=== PATIENT | male | born 1965 | race Two or more races ===

== ENCOUNTER 2018-10-11 15:25 | Inpatient (IN) | payer MEDICAID ==
[~2018-10-11] VITALS: Ht 157.5 cm; Wt 66.3 kg
--- NOTE | 2018-10-11 15:46 | NUR ---
ED Nurse Note: PT FROM HOME CAME IN DUE TO ALCOHOL WITHDRAWAL SYMPTOMS, INSOMNIA. LAST DRINK WAS 12 HOURS AGO. PT STATES HEARING VOICES AND MURMUR BUT UNCLEAR OF WHAT THE VOICES ARE TELLING. PT HAS SI AND THINKS OF OF JUMPING OFF THE PT IS AAO X4 AND AMBULATORY. NO RESPIRATORY DISTRESS. NOTED BILATERAL HAND TREMORS AND PT BEING RESTLESS.
--- NOTE | 2018-10-11 15:53 | NUR ---
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
--- NOTE | 2018-10-11 15:54 | NUR ---
Tamar jain in EDM - 10/11/18 at 1744 by JORGE ED Nurse Note: PRIMARY RN SITTER.
--- NOTE | 2018-10-11 15:57 | Emergency Room Report ---
History of Present Illness General Chief Complaint: Behavioral Complaint Source: Patient, Family Member Present Illness HPI Patient presents with tremulousness and weakness. He claims that he has been drinking for 12 hours. He denies any seizures, blacking out vomiting blood, coffee grounds melena hematochezia, dysuria, chest pain. The patient does complain of right upper quadrant pain it's constant and 8/10 radiating somewhat to his back. He has been vomiting. He has trouble controlling his hands and legs due to the tremor. He is ambulatory but very weak. The last time the patient was sober was 2 years ago for 2 weeks. He does not go to Alcoholics Anonymous. The patient denies other medical problems at this time. He's not suicidal or homicidal although apparently nephew was concerned that patient needed to have a knife removed from near him as he might of had thoughts of self-harm. Allergies: Coded Allergies: No Known Allergies (Unverified , 10/11/18) Patient History Past Medical History: see triage record Social History: Reports: alcohol use; Denies: drug use Social History Narrative with nephew Reviewed Nursing Documentation: PMH: Agreed; PSxH: Agreed Nursing Documentation-PMH Past Medical History: No History, Except For Review of Systems All Other Systems: negative except mentioned in HPI Physical Exam Vital Signs Date Time Temp Pulse Resp B/P (MAP) Pulse Ox O2 Delivery O2 Flow Rate FiO2 10/11/18 15:36 98.6 96 18 184/101 (128) 98 Room Air Sp02 EP Interpretation: reviewed, normal General Appearance: alert, GCS 15, mild distress, thin, Chronically Ill Head: normocephalic, atraumatic Eyes: bilateral eye PERRL, bilateral eye Scleral Injection ENT: moist mucus membranes Neck: supple Respiratory: lungs clear, normal breath sounds Cardiovascular #1: regular rate, rhythm Cardiovascular #2: 2+ radial (R) Gastrointestinal: normal inspection, normal bowel sounds, non tender, no mass, non-distended Musculoskeletal: back normal, normal range of motion, other - Unsteady on feet Neurologic: alert, oriented x3, sensory intact, other - tremulous Psychiatric: anxious Skin: normal inspection, warm/dry Medical Decision Making Diagnostic Impression: Primary Impression: Alcohol withdrawal Qualified Codes: F10.232 - Alcohol dependence with withdrawal with perceptual disturbance Additional Impressions: Vomiting Qualified Codes: R11.2 - Nausea with vomiting, unspecified Substance abuse Rhabdomyolysis Qualified Codes: M62.82 - Rhabdomyolysis ER Course Patient is tremulous with alcohol on his breath with weakness. Differential includes alcohol withdrawal, impending DTs, electrolyte imbalance, acute myocardial infarction amongst others. The patient will be evaluated with EKG, chest x-ray and labs. The patient will be treated with IV hydration, thiamine and Ativan. Based on his current exam more severe course of alcohol withdrawal and possible DTs is most likely to develop. EKG with ST. CXR no infiltrate. Elevated bili. + BAL = 14 with this level of withdrawal. Also + amphetamine Elevated CK. Still with nausea and tremor. Risk for seizure and DTs. Admit tele observation. Contact Dr. Borges. Contact Laboratory Tests Test 10/11/18 15:55 White Blood Count 8.8 K/UL (4.8-10.8) Red Blood Count 4.97 M/UL (4.70-6.10) Hemoglobin 15.9 G/DL (14.2-18.0) Hematocrit 44.1 % (42.0-52.0) Mean Corpuscular Volume 89 FL (80-99) Mean Corpuscular Hemoglobin 31.9 PG (27.0-31.0) H Mean Corpuscular Hemoglobin Concent 36.0 G/DL (32.0-36.0) Red Cell Distribution Width 11.0 % (11.6-14.8) L Platelet Count 136 K/UL (150-450) L Mean Platelet Volume 5.5 FL (6.5-10.1) L Neutrophils (%) (Auto) % (45.0-75.0) Lymphocytes (%) (Auto) % (20.0-45.0) Monocytes (%) (Auto) % (1.0-10.0) Eosinophils (%) (Auto) % (0.0-3.0) Basophils (%) (Auto) % (0.0-2.0) Neutrophils % (Manual) Pending Lymphocytes % (Manual) Pending Platelet Estimate Pending Platelet Morphology Pending Prothrombin Time 10.1 SEC (9.30-11.50) Prothrombin Time INR 1.0 (0.9-1.1) PTT 27 SEC (23-33) Urine Color Yellow Urine Appearance Clear Urine pH 6 (4.5-8.0) Urine Specific [place] 1.020 (1.005-1.035) Urine Protein 2+ (NEGATIVE) H Urine Glucose (UA) Negative (NEGATIVE) Urine Ketones 4+ (NEGATIVE) H Urine Blood 3+ (NEGATIVE) H Urine Nitrite Negative (NEGATIVE) Urine Bilirubin Negative (NEGATIVE) Urine Urobilinogen 4 MG/DL (0.0-1.0) H Urine Leukocyte Esterase 1+ (NEGATIVE) H Urine RBC 5-10 /HPF (0 - 0) H Urine WBC 2-4 /HPF (0 - 0) Urine Squamous Epithelial Cells Few /LPF (NONE/OCC) Urine Bacteria Few /HPF (NONE) Sodium Level 140 MMOL/L (136-145) Potassium Level 3.3 MMOL/L (3.5-5.1) L Chloride Level 99 MMOL/L (98-107) Carbon Dioxide Level 29 MMOL/L (21-32) Anion Gap 12 mmol/L (5-15) Blood Urea Nitrogen 16 mg/dL (7-18) Creatinine 0.8 MG/DL (0.55-1.30) Estimate Glomerular Filtration Rate > 60 mL/min (>60) Glucose Level 155 MG/DL (74-106) H Calcium Level 9.4 MG/DL (8.5-10.1) Phosphorus Level 3.9 MG/DL (2.5-4.9) Magnesium Level 2.0 MG/DL (1.8-2.4) Total Bilirubin 2.9 MG/DL (0.2-1.0) H Direct Bilirubin 0.6 MG/DL (0.0-0.3) H Aspartate Amino Transferase (AST) 89 U/L (15-37) H Alanine Aminotransferase (ALT) 54 U/L (12-78) Alkaline Phosphatase 112 U/L (46-116) Total Creatine Kinase 1443 U/L (26-308) H Troponin I 0.000 ng/mL (0.000-0.056) Total Protein 8.3 G/DL (6.4-8.2) H Albumin 4.3 G/DL (3.4-5.0) Globulin 4.0 g/dL Albumin/Globulin Ratio 1.1 (1.0-2.7) Lipase 119 U/L (73-393) Salicylates Level < 0.2 ug/mL (2.8-20) L Urine Opiates Screen Negative (NEGATIVE) Acetaminophen Level < 2 MCG/ML (10-30) L Urine Barbiturates Screen Negative (NEGATIVE) Phencyclidine (PCP) Screen Negative (NEGATIVE) Urine Amphetamines Screen Positive (NEGATIVE) H Urine Benzodiazepines Screen Negative (NEGATIVE) Urine Cocaine Screen Negative (NEGATIVE) Urine Marijuana (THC) Screen Negative (NEGATIVE) Serum Alcohol 14 mg/dL EKG Diagnostic Results Rate: normal Rhythm: NSR ST Segments: no acute changes Rhythm Strip Diag. Results EP Interpretation: yes Rhythm: no PVC's, no ectopy, other - ST Chest X-Ray Diagnostic Results Chest X-Ray Diagnostic Results : Chest X-Ray Ordered: Yes # of Views/Limited/Complete: 1 View Indication: Other EP Interpretation: Yes Interpretation: no consolidation, no effusion, no pneumothorax Impression: No acute disease Electronically Signed by: Electronically signed by Nestor Tillman MD Last Vital Signs Date Time Temp Pulse Resp B/P (MAP) Pulse Ox O2 Delivery O2 Flow Rate FiO2 10/13/18 00:00 98.8 20 145/95 (112) 97 10/12/18 21:00 Room Air 10/12/18 20:00 78 Status: improved Disposition: PLACE IN OBSERVATION Condition: Serious Nestor Tillman MD Oct 11, 2018 15:57
[2018-10-11 16:00] VITALS: BP 161/91
[2018-10-11] MEDS ORDERED: LORazepam Inj 2mg/ml 1ml IV ONE (16:00)
[2018-10-11] MEDS ORDERED: Thiamine HCl 100 MG in D5W 55 ML IV ONE (16:00)
[2018-10-11 16:30] LABS: HEMATOCRIT 44.1 % (42.0-52.0); HEMOGLOBIN 15.9 G/DL (14.2-18.0); MEAN CORPUSCULAR VOLUME 89 FL (80-99); PLATELET COUNT 136 K/UL (150-450); RED BLOOD COUNT 4.97 M/UL (4.70-6.10); WHITE BLOOD COUNT 8.8 K/UL (4.8-10.8)
--- NOTE | 2018-10-11 16:30 | NUR ---
ED Nurse Note: PT DENIES SI AT THIS TIME AND DENIES HEARING VOICES. NEPHEW AT THE BED SIDE. VSS.
[2018-10-11 16:32] LABS: APPEARANCE,URINE CLEAR; BILIRUBIN, URINE NEGATIVE (NEGATIVE); GLUCOSE, URINE (UA) NEGATIVE (NEGATIVE); KETONES,URINE 4+ (NEGATIVE); LEUKOCYTE ESTERASE ,URINE 1+ (NEGATIVE); NITRITE,URINE NEGATIVE (NEGATIVE); PH,URINE 6 (4.5-8.0); PROTEIN,URINE 2+ (NEGATIVE); UROBILINOGEN,URINE 4 MG/DL (0.0-1.0)
[2018-10-11 16:34] LABS: COLOR,URINE YELLOW
[2018-10-11 16:40] LABS: ANION GAP 12 mmol/L (5-15); BLOOD UREA NITROGEN 16 mg/dL (7-18); CALCIUM 9.4 MG/DL (8.5-10.1); CARBON DIOXIDE 29 MMOL/L (21-32); CHLORIDE 99 MMOL/L (98-107); CREATININE 0.8 MG/DL (0.55-1.30); POTASSIUM 3.3 MMOL/L (3.5-5.1); SODIUM 140 MMOL/L (136-145)
[2018-10-11 16:43] LABS: PHOSPHORUS 3.9 MG/DL (2.5-4.9)
[2018-10-11 16:52] LABS: ALANINE AMINOTRANSFERASE 54 U/L (12-78); ALBUMIN 4.3 G/DL (3.4-5.0); ALBUMIN/GLOBULIN RATIO 1.1 (1.0-2.7); ALKALINE PHOSPHATASE 112 U/L (46-116); ASPARTATE AMINO TRANSFERASE 89 U/L (15-37); BILIRUBIN,TOTAL 2.9 MG/DL (0.2-1.0); CREATINE KINASE 1443 U/L (26-308)
[2018-10-11 16:54] LABS: BILIRUBIN,DIRECT 0.6 MG/DL (0.0-0.3)
[2018-10-11] MEDS ORDERED: cefTRIAXone 1 GM in NS 55 ML IVPB ONE (17:00)
--- NOTE | 2018-10-11 17:40 | NUR ---
Note susy in EDM - 10/11/18 at 1744 by JORGE ED Nurse Note: PT IS CALMER AND MORE RELAXED AT THIS TIME. VSS. FAMILY MEMBER AT THE BED SIDE. PRIMARY RN SITTER.
--- NOTE | 2018-10-11 17:40 | NUR ---
ED Nurse Note: PT IS CALMER AND MORE RELAXED AT THIS TIME. VSS. FAMILY MEMBER AT THE BED SIDE.
[2018-10-11] MEDS ORDERED: LORazepam Inj 2mg/ml 1ml IV PRN (18:00)
[2018-10-11] MEDS ORDERED: Folic Acid 1 MG, Magnesium Sulfate 2,000 MG, Multivitamin - 12 Injection 10 ML, Thiamin... IV ONE ×5 (18:00)
[2018-10-11 18:04] VITALS: BP 154/89
--- NOTE | 2018-10-11 18:21 | NUR ---
ED Nurse Note: TRIED TO CALL FOR REPROT. ESTELLE RECEIVING RN NOT AVAILABLE TO TAKE REPORT AT THIS TIME.
--- NOTE | 2018-10-11 18:34 | NUR ---
ED Nurse Note: REPORT GIVEN TO SYDNEY PAYTON RN OF [facility].
--- NOTE | 2018-10-11 18:45 | NUR ---
ED Nurse Note: PT TRANSFERRED TO [facility] WITH ALL BELONGINGS SENT.
[2018-10-11 18:50] VITALS: BP 147/81
--- NOTE | 2018-10-11 18:50 | NUR ---
NURSE NOTES: Pt received from RORY Orellana alert and oriented x4 with no acute s/s of distress noted. Primarily [place]-speaking. IV site asymptomatic and patent on R ac 20g saline lock. No wounds noted upon admission. Belongings signed with transferring RN - all belongings with patient upon transfer. Pt accompanied by nephew at bedside. Per pt, he normally ambulates at home. Last BM 10/11, no hx of flu vax and pt refused to be vaccinated upon discharge. Per pt, he has been depressed and is having suicidal ideation - wants to jump off the building. 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
--- NOTE | 2018-10-11 19:35 | NUR ---
HAND-OFF: Report given to RORY Berrios. No acute s/s of distress noted.
--- NOTE | 2018-10-11 19:40 | NUR ---
NURSE NOTES: Received report from Sherly Acosta RN. Patient in bed with no complaints of acute pain or discomfort at this time. Kept clean, dry, and comfortable in bed. Able to express needs and wants appropriately with some Yoruba noted. IV line intact and patent with prescribed fluids running as ordered. Placed on continuous cardiac monitoring per protocol. Safety and seizure precaution in place; siderails X2 up and padded, call light within reach, bed in lowest position, brakes and alarm on at all times, and suction equipment at bedside. No S/S of suicidal ideation at this time and is closely monitored. Needs and wants anticipated and attended. Will continue plan of care and monitor for any changes noted.
[2018-10-11 20:00] VITALS: BP 140/84
[2018-10-11] MEDS ORDERED: Folic Acid 1 MG, Magnesium Sulfate 2,000 MG, Multivitamin - 12 Injection 10 ML in Sodiu... IV ONE (20:00)
[2018-10-11] MEDS: Heparin 5000 units/ml inj SUBQ SCH (20:53)
--- NOTE | 2018-10-11 23:53 | Consultation ---
History of Present Illness General Date patient seen: Oct 11, 2018 Chief Complaint: Alcohol W/D and Confusion Referring physician: Dr. Chowdary Present Illness HPI Salvatore Guzman is a 53 year old man with alcoholism, depression (reported suicide attempt six months ago, attempted to jump off a building) who presented to the ED with tremulousness and weakness, nausea and vomiting along with depression and anxiety, He denies any active suicidal ideations. Last drink of alcohol was Friday. Upon interview he is awake, but lethargic and oriented. He is generally weak throughout but without focal deficits Allergies: Coded Allergies: No Known Allergies (Unverified , 10/11/18) Medication History Scheduled Fluoxetine Hcl* (Fluoxetine Hcl*), 20 MG ORAL DAILY Patient History History Provided By: Patient, Medical Record Healthcare decision maker Resuscitation status Full Code Advanced Directive on File Past Medical/Surgical History Past Medical/Surgical History: (1) Alcohol abuse Review of Systems Constitutional: Reports: chills, malaise, weakness; Denies: no symptoms, see HPI, sweats, fever, other Eye: Denies: no symptoms, see HPI, eye pain, blurred vision, tearing, double vision, nose pain, nose congestion, acuity changes, discharge, other ENT: Denies: no symptoms, see HPI, ear pain, ear discharge, nose pain, nose congestion, throat pain, throat swelling, mouth pain, hearing loss, nasal discharge, other Respiratory: Denies: no symptoms, see HPI, cough, orthopnea, shortness of breath, stridor, wheezing, STOLL, sputum, other Cardiovascular: Denies: no symptoms, see HPI, chest pain, edema, palpitations, syncope, PND, other Gastrointestinal: Denies: no symptoms, see HPI, abdominal pain, constipation, diarrhea, nausea, vomiting, melena, hematemesis, other Genitourinary: Denies: no symptoms, see HPI, discharge, dysuria, frequency, hematuria, pain, retention, incontinence, urgency, vag bleed/dc, other Musculoskeletal: Denies: no symptoms, see HPI, back pain, gout, joint pain, joint swelling, muscle pain, muscle stiffness, other Skin: Denies: no symptoms, see HPI, rash, change in color, change in hair/nails , dryness, lesions, other Psychiatric: Denies: no symptoms, see HPI, prior hx, anxiety, depressed feelings, emotional problems, SI, HI, hallucinations, other Neurological: Reports: tremors; Denies: no symptoms, see HPI, headache, numbness, paresthesia, seizure, tingling, focal weakness, syncope, dizziness, other Endocrine: Denies: no symptoms, see HPI, excessive sweating, flushing, intolerance to temperature, increased thirst, increased urine, unexplained weight loss, other Hematologic/Lymphatic: Denies: no symptoms, see HPI, anemia, blood clots, easy bleeding, easy bruising, swollen glands, diathesis, other Physical Exam General Appearance: WD/WN, no apparent distress, lethargic, alert oriented x3 Lines, tubes and drains: peripheral HEENT: normocephalic, atraumatic, anicteric, mucous membranes moist, PERRL Neck: non-tender, normal alignment, supple, normal inspection Respiratory/Chest: normal breath sounds, no respiratory distress, no accessory muscle use Extremities: non-tender, non-pitting, no edema, no cyanosis Skin Exam: normal pigmentation, warm/dry, no diaphoresis 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, alert, oriented x 3, responsive, motor weakness, other Musculoskeletal: no effusion - 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0) Mean Corpuscular Volume 89 FL (80-99) Mean Corpuscular Hemoglobin 31.9 PG (27.0-31.0) H Mean Corpuscular Hemoglobin Concent 36.0 G/DL (32.0-36.0) Red Cell Distribution Width 11.0 % (11.6-14.8) L Platelet Count 136 K/UL (150-450) L Mean Platelet Volume 5.5 FL (6.5-10.1) L Neutrophils (%) (Auto) % (45.0-75.0) Lymphocytes (%) (Auto) % (20.0-45.0) Monocytes (%) (Auto) % (1.0-10.0) Eosinophils (%) (Auto) % (0.0-3.0) Basophils (%) (Auto) % (0.0-2.0) Differential Total Cells Counted 100 Neutrophils % (Manual) 85 % (45-75) H Lymphocytes % (Manual) 9 % (20-45) L Monocytes % (Manual) 5 % (1-10) Eosinophils % (Manual) 0 % (0-3) Basophils % (Manual) 1 % (0-2) Band Neutrophils 0 % (0-8) Platelet Estimate Decreased L Platelet Morphology Normal Red Blood Cell Morphology Normal Prothrombin Time 10.1 SEC (9.30-11.50) Prothromb Time International Ratio 1.0 (0.9-1.1) Activated Partial Thromboplast Time 27 SEC (23-33) Urine Color Yellow Urine Appearance Clear Urine pH 6 (4.5-8.0) Urine Specific [place] 1.020 (1.005-1.035) Urine Protein 2+ (NEGATIVE) H Urine Glucose (UA) Negative (NEGATIVE) Urine Ketones 4+ (NEGATIVE) H Urine Blood 3+ (NEGATIVE) H Urine Nitrite Negative (NEGATIVE) Urine Bilirubin Negative (NEGATIVE) Urine Urobilinogen 4 MG/DL (0.0-1.0) H Urine Leukocyte Esterase 1+ (NEGATIVE) H Urine RBC 5-10 /HPF (0 - 0) H Urine WBC 2-4 /HPF (0 - 0) Urine Squamous Epithelial Cells Few /LPF (NONE/OCC) Urine Bacteria Few /HPF (NONE) Sodium Level 140 MMOL/L (136-145) Potassium Level 3.3 MMOL/L (3.5-5.1) L Chloride Level 99 MMOL/L (98-107) Carbon Dioxide Level 29 MMOL/L (21-32) Anion Gap 12 mmol/L (5-15) Blood Urea Nitrogen 16 mg/dL (7-18) Creatinine 0.8 MG/DL (0.55-1.30) Estimat Glomerular Filtration Rate > 60 mL/min (>60) Glucose Level 155 MG/DL (74-106) H Calcium Level 9.4 MG/DL (8.5-10.1) Phosphorus Level 3.9 MG/DL (2.5-4.9) Magnesium Level 2.0 MG/DL (1.8-2.4) Total Bilirubin 2.9 MG/DL (0.2-1.0) H Direct Bilirubin 0.6 MG/DL (0.0-0.3) H Aspartate Amino Transf (AST/SGOT) 89 U/L (15-37) H Alanine Aminotransferase (ALT/SGPT) 54 U/L (12-78) Alkaline Phosphatase 112 U/L (46-116) Total Creatine Kinase 1443 U/L (26-308) H Troponin I 0.000 ng/mL (0.000-0.056) Total Protein 8.3 G/DL (6.4-8.2) H Albumin 4.3 G/DL (3.4-5.0) Globulin 4.0 g/dL Albumin/Globulin Ratio 1.1 (1.0-2.7) Lipase 119 U/L (73-393) Salicylates Level < 0.2 ug/mL (2.8-20) L Urine Opiates Screen Negative (NEGATIVE) Acetaminophen Level < 2 MCG/ML (10-30) L Urine Barbiturates Screen Negative (NEGATIVE) Phencyclidine (PCP) Screen Negative (NEGATIVE) Urine Amphetamines Screen Positive (NEGATIVE) H Urine Benzodiazepines Screen Negative (NEGATIVE) Urine Cocaine Screen Negative (NEGATIVE) Urine Marijuana (THC) Screen Negative (NEGATIVE) Serum Alcohol 14 mg/dL Height (Feet): 5 Height (Inches): 2.00 Weight (Pounds): 165 Medications Current Medications Medications (Trade) Dose Ordered Sig/Jerome Route PRN Reason Start Time Stop Time Status Last Admin Dose Admin Acetaminophen (Tylenol) 650 mg Q4H PRN ORAL Mild Pain (Pain Scale 1-3) 10/11/18 18:00 11/10/18 17:59 Dextrose (Dextrose 50%) 25 ml Q30M PRN IV Hypoglycemia 10/11/18 18:00 11/10/18 17:59 Dextrose (Dextrose 50%) 50 ml Q30M PRN IV Hypoglycemia 10/11/18 18:00 11/10/18 17:59 Diphenhydramine HCl (Benadryl) 25 mg Q6H PRN ORAL Itching/Pruritis 10/11/18 18:00 11/10/18 17:59 Folic Acid (Folate) 1 mg DAILY ORAL 10/12/18 09:00 11/11/18 08:59 Folic Acid 1 mg/ Magnesium Sulfate 2000 mg/ Multivitamins 10 ml/Sodium Chloride 1,014.2 ml @ 125 mls/ hr Q8H7M ONCE IV 10/11/18 20:00 10/12/18 04:06 10/11/18 20:51 Heparin Sodium (Porcine) (Heparin 5000 units/ml) 5,000 units EVERY 12 HOURS SUBQ 10/11/18 21:00 11/10/18 20:59 10/11/18 20:53 Lorazepam (Ativan 2mg/ml 1ml) 1 mg Q4H PRN IV anxiety 10/11/18 18:00 10/18/18 17:59 Ondansetron HCl (Zofran) 4 mg Q6H PRN IVP Nausea & Vomiting 10/11/18 18:00 11/10/18 17:59 Pantoprazole (Protonix) 40 mg ACBREAKFAST ORAL 10/12/18 06:30 11/11/18 06:29 Thiamine HCl (Vitamin B1) 100 mg DAILY ORAL 10/12/18 09:00 11/11/18 08:59 Assessment/Plan Problem List: (1) DTs (delirium tremens) ICD Codes: F10.231 - Alcohol dependence with withdrawal delirium SNOMED: 2642926 (2) Acute encephalopathy ICD Codes: G93.40 - Encephalopathy, unspecified SNOMED: 93804881, 240583773 (3) Impending delirium tremens ICD Codes: F10.239 - Alcohol dependence with withdrawal, unspecified SNOMED: 297246043 (4) Alcohol abuse ICD Codes: F10.10 - Alcohol abuse, uncomplicated SNOMED: 95516025 Status: stable, progressing, tolerating diet Assessment/Plan: COntinue neuro obs Pain management as per ID Surgical plan as per ortho Maintain normothermia Maintain normoglycemia with ISS PT eval Case Management for D/C planning Yaneth Bolton N.P. Oct 11, 2018 23:53
[2018-10-12] VITALS: BP 134/80
--- NOTE | 2018-10-12 02:27 | NUR ---
NURSE NOTES: Patient in bed asleep with no S/S of distress noted. Will continue to monitor
[2018-10-12 04:00] VITALS: BP 136/79
[2018-10-12 07:19] LABS: BASOPHILS % (AUTO) 0.9 % (0.0-2.0); HEMATOCRIT 42.6 % (42.0-52.0); LYMPHOCYTES % (AUTO) 20.3 % (20.0-45.0); MEAN CORPUSCULAR VOLUME 91 FL (80-99); MONOCYTES % (AUTO) 9.4 % (1.0-10.0); NEUTROPHILS % (AUTO) 68.4 % (45.0-75.0); PLATELET COUNT 117 K/UL (150-450); RED BLOOD COUNT 4.67 M/UL (4.70-6.10); WHITE BLOOD COUNT 5.6 K/UL (4.8-10.8)
--- NOTE | 2018-10-12 07:34 | NUR ---
HAND-OFF: Report given to Sherly Acosta RN. Patient in bed with no S/S of distress noted. Endorsed plan of care.
--- NOTE | 2018-10-12 07:35 | NUR ---
NURSE NOTES: Pt received from Yash RN alert and oriented x4 with no acute s/s of distress noted. IV site asymptomatic and patent on R ac 20g, saline lock. Bed alarm on, Bed in lowest position. Call light and belongings within reach.
[2018-10-12 07:54] LABS: ALANINE AMINOTRANSFERASE 44 U/L (12-78); ALBUMIN 3.5 G/DL (3.4-5.0); ALKALINE PHOSPHATASE 98 U/L (46-116); ANION GAP 10 mmol/L (5-15); ASPARTATE AMINO TRANSFERASE 58 U/L (15-37); BLOOD UREA NITROGEN 10 mg/dL (7-18); CALCIUM 8.6 MG/DL (8.5-10.1); CARBON DIOXIDE 28 MMOL/L (21-32); CHLORIDE 99 MMOL/L (98-107); CREATINE KINASE 702 U/L (26-308); CREATININE 0.6 MG/DL (0.55-1.30); SODIUM 137 MMOL/L (136-145)
[2018-10-12 07:55] LABS: BILIRUBIN,DIRECT 0.4 MG/DL (0.0-0.3)
[2018-10-12 08:00] VITALS: BP 137/82
[2018-10-12] MEDS: Heparin 5000 units/ml inj SUBQ SCH ×2 (09:00→21:00)
[2018-10-12] MEDS: Thiamine 100mg tab ORAL SCH (09:33)
--- NOTE | 2018-10-12 10:07 | NUR ---
NURSE NOTES: RN informed Dr. Paredes regarding Potassium of 3.0 today. Obtained order for 40 meQ Kcl x1 now. Will carry out order.
--- NOTE | 2018-10-12 10:24 | Diagnostic Imaging Report ---
Indication: Chest pain Comparison: None A single view chest radiograph was obtained. Findings: Cardiomediastinal appearance is within normal limits for age. The lungs are clear. Pulmonary vascularity is appropriate. The diaphragmatic contour is smooth and costophrenic angles are sharp. No pleural effusions are identified. The bones are unremarkable. Impression: No acute findings
--- NOTE | 2018-10-12 10:58 | History and Physical ---
History of Present Illness General Date patient seen: Oct 12, 2018 Time patient seen: 07:15 Reason for Hospitalization: Behavioral Complaint Present Illness HPI 53 year old man with alcoholism, depression (reported suicide attempt six months ago, attempted to jump off a building) who presented to the ED with tremulousness and weakness, nausea and vomiting along with depression and anxiety, Denies any active suicidal ideations. Last drink of alcohol was Friday. SHx: Denies tobacco use FHx: No premature CAD Allergies: Coded Allergies: No Known Allergies (Unverified , 10/11/18) Patient History Healthcare decision maker Resuscitation status Full Code Advanced Directive on File Review of Systems Constitutional: Denies: chills, fever Eye: Denies: eye pain ENT: Denies: ear pain Respiratory: Denies: cough Cardiovascular: Denies: chest pain Gastrointestinal: Reports: nausea, vomiting; Denies: abdominal pain Genitourinary: Denies: dysuria Musculoskeletal: Denies: back pain Neurological: Denies: headache Physical Exam General Appearance: no apparent distress, alert HEENT: atraumatic, anicteric Neck: supple Respiratory/Chest: lungs clear, normal breath sounds, no respiratory distress, no accessory muscle use Cardiovascular/Chest: normal rate, regular rhythm Abdomen: non tender, soft Extremities: non-tender, normal inspection Neurologic: 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 sourcing specialist II-XII grossly normal, no motor/sensory deficits, alert, oriented x 3, other - Mild resting tremor Last 24 Hour Vital Signs Date Time Temp Pulse Resp B/P (MAP) Pulse Ox O2 Delivery O2 Flow Rate FiO2 10/12/18 09:00 Room Air 10/12/18 08:00 97.8 81 20 137/82 (100) 99 10/12/18 04:00 71 10/12/18 04:00 99.0 89 17 136/79 (98) 95 10/12/18 00:00 99.2 94 16 134/80 (98) 95 10/12/18 00:00 74 10/11/18 21:00 Room Air 10/11/18 20:00 99.7 97 17 140/84 (102) 95 10/11/18 20:00 96 10/11/18 19:14 Room Air 10/11/18 18:50 97.5 93 18 147/81 (103) 97 10/11/18 18:45 97.9 88 17 158/90 97 Room Air 10/11/18 18:04 98.0 82 15 154/89 100 Room Air 10/11/18 16:00 98.2 83 20 161/91 99 Room Air 10/11/18 15:46 96 18 Room Air 10/11/18 15:36 98.6 96 18 184/101 (128) 98 Room Air Intake and Output 10/11/18 10/12/18 18:59 06:59 Intake Total 1056 ml 150 ml Output Total 200 ml Balance 1056 ml -50 ml Intake Oral 150 ml IV Total 1056 ml Output Urine Total 200 ml # Voids 1 4 # Bowel Movements 1 Laboratory Tests Test 10/11/18 15:55 10/12/18 05:54 White Blood Count 8.8 K/UL (4.8-10.8) 5.6 K/UL (4.8-10.8) Red Blood Count 4.97 M/UL (4.70-6.10) 4.67 M/UL (4.70-6.10) L Hemoglobin 15.9 G/DL (14.2-18.0) 15.0 G/DL (14.2-18.0) Hematocrit 44.1 % (42.0-52.0) 42.6 % (42.0-52.0) Mean Corpuscular Volume 89 FL (80-99) 91 FL (80-99) Mean Corpuscular Hemoglobin 31.9 PG (27.0-31.0) H 32.2 PG (27.0-31.0) H Mean Corpuscular Hemoglobin Concent 36.0 G/DL (32.0-36.0) 35.4 G/DL (32.0-36.0) Red Cell Distribution Width 11.0 % (11.6-14.8) L 11.0 % (11.6-14.8) L Platelet Count 136 K/UL (150-450) L 117 K/UL (150-450) L Mean Platelet Volume 5.5 FL (6.5-10.1) L 5.1 FL (6.5-10.1) L Neutrophils (%) (Auto) % (45.0-75.0) 68.4 % (45.0-75.0) Lymphocytes (%) (Auto) % (20.0-45.0) 20.3 % (20.0-45.0) Monocytes (%) (Auto) % (1.0-10.0) 9.4 % (1.0-10.0) Eosinophils (%) (Auto) % (0.0-3.0) 1.0 % (0.0-3.0) Basophils (%) (Auto) % (0.0-2.0) 0.9 % (0.0-2.0) Differential Total Cells Counted 100 Neutrophils % (Manual) 85 % (45-75) H Lymphocytes % (Manual) 9 % (20-45) L Monocytes % (Manual) 5 % (1-10) Eosinophils % (Manual) 0 % (0-3) Basophils % (Manual) 1 % (0-2) Band Neutrophils 0 % (0-8) Platelet Estimate Decreased L Platelet Morphology Normal Red Blood Cell Morphology Normal Prothrombin Time 10.1 SEC (9.30-11.50) Prothromb Time International Ratio 1.0 (0.9-1.1) Activated Partial Thromboplast Time 27 SEC (23-33) Urine Color Yellow Urine Appearance Clear Urine pH 6 (4.5-8.0) Urine Specific [place] 1.020 (1.005-1.035) Urine Protein 2+ (NEGATIVE) H Urine Glucose (UA) Negative (NEGATIVE) Urine Ketones 4+ (NEGATIVE) H Urine Blood 3+ (NEGATIVE) H Urine Nitrite Negative (NEGATIVE) Urine Bilirubin Negative (NEGATIVE) Urine Urobilinogen 4 MG/DL (0.0-1.0) H Urine Leukocyte Esterase 1+ (NEGATIVE) H Urine RBC 5-10 /HPF (0 - 0) H Urine WBC 2-4 /HPF (0 - 0) Urine Squamous Epithelial Cells Few /LPF (NONE/OCC) Urine Bacteria Few /HPF (NONE) Sodium Level 140 MMOL/L (136-145) 137 MMOL/L (136-145) Potassium Level 3.3 MMOL/L (3.5-5.1) L 3.0 MMOL/L (3.5-5.1) L Chloride Level 99 MMOL/L (98-107) 99 MMOL/L (98-107) Carbon Dioxide Level 29 MMOL/L (21-32) 28 MMOL/L (21-32) Anion Gap 12 mmol/L (5-15) 10 mmol/L (5-15) Blood Urea Nitrogen 16 mg/dL (7-18) 10 mg/dL (7-18) Creatinine 0.8 MG/DL (0.55-1.30) 0.6 MG/DL (0.55-1.30) Estimat Glomerular Filtration Rate > 60 mL/min (>60) > 60 mL/min (>60) Glucose Level 155 MG/DL (74-106) H 101 MG/DL (74-106) Calcium Level 9.4 MG/DL (8.5-10.1) 8.6 MG/DL (8.5-10.1) Phosphorus Level 3.9 MG/DL (2.5-4.9) Magnesium Level 2.0 MG/DL (1.8-2.4) 2.2 MG/DL (1.8-2.4) Total Bilirubin 2.9 MG/DL (0.2-1.0) H 3.0 MG/DL (0.2-1.0) H Direct Bilirubin 0.6 MG/DL (0.0-0.3) H 0.4 MG/DL (0.0-0.3) H Aspartate Amino Transf (AST/SGOT) 89 U/L (15-37) H 58 U/L (15-37) H Alanine Aminotransferase (ALT/SGPT) 54 U/L (12-78) 44 U/L (12-78) Alkaline Phosphatase 112 U/L (46-116) 98 U/L (46-116) Total Creatine Kinase 1443 U/L (26-308) H 702 U/L (26-308) H Troponin I 0.000 ng/mL (0.000-0.056) Total Protein 8.3 G/DL (6.4-8.2) H 6.9 G/DL (6.4-8.2) Albumin 4.3 G/DL (3.4-5.0) 3.5 G/DL (3.4-5.0) Globulin 4.0 g/dL 3.4 g/dL Albumin/Globulin Ratio 1.1 (1.0-2.7) 1.0 (1.0-2.7) Lipase 119 U/L (73-393) Salicylates Level < 0.2 ug/mL (2.8-20) L Urine Opiates Screen Negative (NEGATIVE) Acetaminophen Level < 2 MCG/ML (10-30) L Urine Barbiturates Screen Negative (NEGATIVE) Phencyclidine (PCP) Screen Negative (NEGATIVE) Urine Amphetamines Screen Positive (NEGATIVE) H Urine Benzodiazepines Screen Negative (NEGATIVE) Urine Cocaine Screen Negative (NEGATIVE) Urine Marijuana (THC) Screen Negative (NEGATIVE) Serum Alcohol 14 mg/dL Height (Feet): 5 Height (Inches): 2.00 Weight (Pounds): 165 Medications Current Medications Medications (Trade) Dose Ordered Sig/Jerome Route PRN Reason Start Time Stop Time Status Last Admin Dose Admin Acetaminophen (Tylenol) 650 mg Q4H PRN ORAL Mild Pain (Pain Scale 1-3) 10/11/18 18:00 11/10/18 17:59 Dextrose (Dextrose 50%) 25 ml Q30M PRN IV Hypoglycemia 10/11/18 18:00 11/10/18 17:59 Dextrose (Dextrose 50%) 50 ml Q30M PRN IV Hypoglycemia 10/11/18 18:00 11/10/18 17:59 Diphenhydramine HCl (Benadryl) 25 mg Q6H PRN ORAL Itching/Pruritis 10/11/18 18:00 11/10/18 17:59 Folic Acid (Folate) 1 mg DAILY ORAL 10/12/18 09:00 11/11/18 08:59 10/12/18 09:34 Heparin Sodium (Porcine) (Heparin 5000 units/ml) 5,000 units EVERY 12 HOURS SUBQ 10/11/18 21:00 11/10/18 20:59 10/11/18 20:53 Lorazepam (Ativan 2mg/ml 1ml) 1 mg Q4H PRN IV anxiety 10/11/18 18:00 10/18/18 17:59 Ondansetron HCl (Zofran) 4 mg Q6H PRN IVP Nausea & Vomiting 10/11/18 18:00 11/10/18 17:59 Pantoprazole (Protonix) 40 mg ACBREAKFAST ORAL 10/12/18 06:30 11/11/18 06:29 10/12/18 05:48 Potassium Chloride (K-Dur) 40 meq ONCE ORAL 10/12/18 10:15 10/12/18 11:15 10/12/18 10:40 Thiamine HCl (Vitamin B1) 100 mg DAILY ORAL 10/12/18 09:00 11/11/18 08:59 10/12/18 09:33 Assessment/Plan Assessment/Plan: #Alcoholism #Alcohol withdrawal #Urine tox positive for methamphetamine #Major depression #Anxiety #Hypokalemia -admit to medical service -Ativan per CIWA -IV hydration -Monitor lytes and replace prn -Thiamine, Folate supplements -Psychiatry and Neurology evals -radiology services manager consult I spent 70 minutes on this patient's case, and 35 minutes was dedicated to counseling and/or care coordination. Damion Ardon MD Oct 12, 2018 10:58
[2018-10-12 12:00] VITALS: BP 146/89
--- NOTE | 2018-10-12 15:29 | NUR ---
Social Service Note SW met with patient who states he felt comfortable communicating in Malaysian and didn't require a zone supervisor firearms. Patient states he has been feeling depressed due to his leaving him. Patient states he his having a hard time coping. Patient states he began drinking to help forget the pain he is in. Patient states he has gone to far and is receptive to resources. Patient denied suicidal ideation. SW discussed 12 step meetings, [facility] Substance Abuse Hotline and mental health resource hotlines and clinics. Patient's resources are limited presumptive medi-patrizia. [facility] EW assisted patient in completing application, patient doesn't meet the PROCUL criteria, medi-patrizia will be restricted. Patient will return to address on face sheet. Emotional support provided. Resources placed in chart and to be provided to patient upon discharge. Will monitor and be available as needed.
[2018-10-12 16:00] VITALS: BP 143/85
--- NOTE | 2018-10-12 19:23 | Cardiology Report ---
APPROVED REPORT EKG Measurement Heart [id number] Normal sinus rhythm Possible Anterior infarct, age undetermined Abnormal ECG
--- NOTE | 2018-10-12 19:30 | NUR ---
HAND-OFF: Report given to RORY Barajas. No acute s/s of distress noted.
[2018-10-12 20:00] VITALS: BP 139/85
--- NOTE | 2018-10-12 23:59 | Neurology Progress Note ---
Interim History Interim History ROS Limited/Unobtainable: No Complaints: AMS/ Alcohol Withdrawal Events: Patient is ambulatory, non focal, MS stable Interim History This visit was performed on October 12, [address] Luis Alberto Carmona Objective Physical Exam Last Vital Signs Date Time Temp Pulse Resp B/P (MAP) Pulse Ox O2 Delivery O2 Flow Rate FiO2 10/12/18 21:00 Room Air 10/12/18 20:00 98.8 78 20 139/85 (103) 97 Laboratory Tests Test 10/12/18 05:54 White Blood Count 5.6 K/UL (4.8-10.8) Red Blood Count 4.67 M/UL (4.70-6.10) L Hemoglobin 15.0 G/DL (14.2-18.0) Hematocrit 42.6 % (42.0-52.0) Mean Corpuscular Volume 91 FL (80-99) Mean Corpuscular Hemoglobin 32.2 PG (27.0-31.0) H Mean Corpuscular Hemoglobin Concent 35.4 G/DL (32.0-36.0) Red Cell Distribution Width 11.0 % (11.6-14.8) L Platelet Count 117 K/UL (150-450) L Mean Platelet Volume 5.1 FL (6.5-10.1) L Neutrophils (%) (Auto) 68.4 % (45.0-75.0) Lymphocytes (%) (Auto) 20.3 % (20.0-45.0) Monocytes (%) (Auto) 9.4 % (1.0-10.0) Eosinophils (%) (Auto) 1.0 % (0.0-3.0) Basophils (%) (Auto) 0.9 % (0.0-2.0) Sodium Level 137 MMOL/L (136-145) Potassium Level 3.0 MMOL/L (3.5-5.1) L Chloride Level 99 MMOL/L (98-107) Carbon Dioxide Level 28 MMOL/L (21-32) Anion Gap 10 mmol/L (5-15) Blood Urea Nitrogen 10 mg/dL (7-18) Creatinine 0.6 MG/DL (0.55-1.30) Estimat Glomerular Filtration Rate > 60 mL/min (>60) Glucose Level 101 MG/DL (74-106) Calcium Level 8.6 MG/DL (8.5-10.1) Magnesium Level 2.2 MG/DL (1.8-2.4) Total Bilirubin 3.0 MG/DL (0.2-1.0) H Direct Bilirubin 0.4 MG/DL (0.0-0.3) H Aspartate Amino Transf (AST/SGOT) 58 U/L (15-37) H Alanine Aminotransferase (ALT/SGPT) 44 U/L (12-78) Alkaline Phosphatase 98 U/L (46-116) Total Creatine Kinase 702 U/L (26-308) H Total Protein 6.9 G/DL (6.4-8.2) Albumin 3.5 G/DL (3.4-5.0) Globulin 3.4 g/dL Albumin/Globulin Ratio 1.0 (1.0-2.7) General: well developed, no acute distress Head: normocophalic Neck: no rigidity EENT: benign Neurologic Exam Mental Status: awake, alert, oriented x4, normal cognition, good mathematical skills, normal recent memory, normal remote memory, preserved visuospatial function Speech: normal speech, no dysarthia Language: normal language, no aphasia Cranial Nerve II: fundus normal, visual lopez, no papilledema Cranial Nerves III, IV, : PERRLA, EOMI, pupils Cranial Nerve V: normal facial sensations, temporales function normal, masseters function normal, pterygoids function normal Cranial Nerve VII: no facial asymmetry, normal facial expressions Cranial Nerve VIII: normal hearing, no nystagmus Cranial Nerve IX: normal palate elevation, gag response Cranial Nerve X: no voice hoarseness Cranial Nerve XI: SCM symmetric, trapezii function normal Cranial Nerve XII: tongue midline, no tongue atrophy/fasciculations Motor System: normal muscle tone, strength 5/5, no involuntary movement, no muscle wasting Sensory: normal pinprick, normal light touch, normal position sense, normal graphesthesia Coordination: normal finger to nose bilaterally, normal heel to resendez bilaterally, negative Romberg test Deep Tendon Reflexes: 2+ bicep (L), 2+ bicep (R), 2+ tricep (L), 2+ tricep (R) , 2+ brachioradialis (L), 2+ brachioradialis (R), 2+ knee (L), 2+ knee (R), 2+ ankle (L), 2+ ankle (R) Stance: normal Gait: stable, normal regular, heel + toe gait Impression/Recommendations Problems: (1) DTs (delirium tremens) (2) Acute encephalopathy (3) Impending delirium tremens Status: stable, progressing, tolerating diet Recommendations COntinue neuro obs q 4 hrs Pain management as per ID Surgical plan as per ortho Maintain normothermia Maintain normoglycemia with ISS Improve overall nutrition Replace/ Replete Donnie PT eval Case Management for D/C planning Yaneth Bolton N.P. Oct 12, 2018 23:59
[2018-10-13] VITALS: BP 145/95
[2018-10-13 04:00] VITALS: BP 160/86
[2018-10-13] MEDS: chlordiazePOXIDE 25mg Cap ORAL SCH ×3 (06:06→21:47)
--- NOTE | 2018-10-13 06:33 | NUR ---
PT. DENIES CHEST PAIN. NO DISTRES NOTED. REPORT GIVEN TO NURSE ABBASI.
[2018-10-13 06:37] LABS: BASOPHILS % (AUTO) 0.3 % (0.0-2.0); EOSINOPHILS % (AUTO) 1.2 % (0.0-3.0); HEMATOCRIT 44.9 % (42.0-52.0); HEMOGLOBIN 15.9 G/DL (14.2-18.0); LYMPHOCYTES % (AUTO) 15.8 % (20.0-45.0); MEAN CORPUSCULAR VOLUME 91 FL (80-99); MONOCYTES % (AUTO) 9.1 % (1.0-10.0); NEUTROPHILS % (AUTO) 73.6 % (45.0-75.0); PLATELET COUNT 125 K/UL (150-450); RED BLOOD COUNT 4.91 M/UL (4.70-6.10); WHITE BLOOD COUNT 7.3 K/UL (4.8-10.8)
[2018-10-13 07:09] LABS: ANION GAP 9 mmol/L (5-15); BLOOD UREA NITROGEN 12 mg/dL (7-18); CARBON DIOXIDE 28 MMOL/L (21-32); CHLORIDE 101 MMOL/L (98-107); CREATININE 0.7 MG/DL (0.55-1.30); POTASSIUM 3.5 MMOL/L (3.5-5.1); SODIUM 138 MMOL/L (136-145)
--- NOTE | 2018-10-13 07:15 | NUR ---
NURSE NOTES: Received report from RORY Diaz. Patient is sitting in bed with no complaints of acute pain or discomfort at this time. Kept clean, dry, and comfortable in bed. Safety and seizure precaution in place; side rails X2 up and padded, call light within reach, bed in lowest position, brakes and alarm on at all times, and suction equipment at bedside. No S/S of suicidal ideation at this time and is closely monitored. Will continue plan of care.
[2018-10-13 08:00] VITALS: BP 150/79
[2018-10-13] MEDS: Thiamine 100mg tab ORAL SCH (08:15)
[2018-10-13] MEDS: Heparin 5000 units/ml inj SUBQ SCH ×2 (08:17→21:55)
[2018-10-13] MEDS ORDERED: Thiamine 100mg tab ORAL SCH (09:00)
--- NOTE | 2018-10-13 09:14 | NUR ---
CASE MANAGEMENT:REVIEW 10/11/18 53 YR OLD MALE PRESENTED TO ER CC: ALCOHOL WITHDRAWAL, TREMORS, SWEATING AND INSOMNIA SI: ALCOHOL WITHDRAWAL. RHABDO 98.6 96 18 158/90 98% ON RA PLT-136 K-3.3 TCK+1443 URINE(+) AMPHETAMINES IS: IV ATIVAN 1L NS BOLUS IV THIAMINE IV PEPCID IV ROCEPHIN CHEST XRAY : TO TELEMETRY IS: IV BANANA BAG INTERQUAL CRITERIA MET 10/12/18 SI: ETOH WITHDRAWAL 99.0 89 17 136/79 95% ON RA PLT-117 K-3.0 TCK+702 IS: THIAMINE PO QD FOLATE PO QD PROTONIX PO QAM HEPARIN SQ Q12 K-DUR PO X1 : TELEMETRY STATUS
--- NOTE | 2018-10-13 09:36 | NUR ---
CASE MANAGEMENT:REVIEW 10/13/18 SI: ALCOHOL WITHDRAWAL.RHABDOMYOLYSIS 98.1 79 20 150/79 98% ON RA PLT-125 IS: PROZAC PO QD LIBRIUM PO Q8HRS THIAMINE PO QD FOLATE PO QD PROTONIX PO QAM HEPARIN SQ Q12 : TELEMETRY STATUS DCP: FROM HOME
--- NOTE | 2018-10-13 10:15 | Consultation ---
DATE OF CONSULTATION: 10/12/2018 CONSULTING PHYSICIAN: Mary Molina M.D. HISTORY OF PRESENT ILLNESS: The patient is a 53-year-old male with a history of alcohol dependence was admitted to the hospital for alcohol withdrawal. The patient was seen on 10/12/2018 and this is a late entry. The patient presents with depressed mood, anhedonia, worthlessness, and hopelessness. The patient presents with weakness and shaking and is tremulous. The patient has depressed mood, anhedonia, worthlessness, and hopelessness. PAST PSYCHIATRIC HISTORY: Depression. Suicide attempt, six months however, he did not jump. MEDICATIONS: He is currently on no psychotropic medications. PAST MEDICAL HISTORY: Nonsignificant. SUBSTANCE ABUSE HISTORY: Alcohol dependence. MENTAL STATUS EXAMINATION: The patient is alert and oriented times self, place, and situation. Mood is depressed. Affect is constricted. Congruent with mood. Thought process is concrete. Thought content, no suicidal or homicidal ideations. ASSESSMENT: [place] I Alcohol dependence. Alcohol withdrawal. [place] II Deferred. PLAN: 1. The patient will be continued on folic acid. Thiamine was started. The patient is on Prozac 20 mg. 2. Start the patient on Librium 25 mg p.o. t.i.d. 3. We will continue to follow and readjust the medications. Mary Molina M.D. DR: TAHIRA JOB#: [id number] CC:
[2018-10-13 12:00] VITALS: BP 126/79
--- NOTE | 2018-10-13 12:29 | General Progress Note ---
Assessment/Plan Assessment/Plan: #Alcoholism #Alcohol withdrawal #Urine tox positive for methamphetamine #Major depression #Anxiety #Hypokalemia -improving -Ativan per CIWA -Scheduled Librium -IV hydration -Monitor lytes and replace prn -Thiamine, Folate supplements -Psychiatry and Neurology evals appreciated -environmental services director consult Subjective Date patient seen: Oct 13, 2018 Time patient seen: 07:00 ROS Limited/Unobtainable: No Constitutional: Denies: fever Cardiovascular: Denies: chest pain Respiratory: Denies: cough Gastrointestinal/Abdominal: Denies: abdomen distended Neurologic/Psychiatric: Denies: anxiety, depressed Allergies: Coded Allergies: No Known Allergies (Unverified , 10/11/18) Subjective Medicine follow up for alcohol withdrawal and depression. Feels better today. No new complaints. Objective Last 24 Hour Vital Signs Date Time Temp Pulse Resp B/P (MAP) Pulse Ox O2 Delivery O2 Flow Rate FiO2 10/13/18 09:00 Room Air 10/13/18 08:00 98.1 79 20 150/79 (102) 98 10/13/18 08:00 82 10/13/18 04:00 98.0 70 20 160/86 (110) 95 10/13/18 04:00 68 10/13/18 00:00 98.8 20 145/95 (112) 97 10/12/18 21:00 Room Air 10/12/18 20:00 98.8 78 20 139/85 (103) 97 10/12/18 20:00 68 10/12/18 16:00 99.1 86 20 143/85 (104) 97 10/12/18 16:00 77 Intake and Output 10/12/18 10/13/18 18:59 06:59 Intake Total 720 ml Balance 720 ml Intake Oral 720 ml # Voids 3 2 # Bowel Movements 2 Laboratory Tests 10/13/18 05:22: White Blood Count 7.3, Red Blood Count 4.91, Hemoglobin 15.9, Hematocrit 44.9, Mean Corpuscular Volume 91, Mean Corpuscular Hemoglobin 32.4H, Mean Corpuscular Hemoglobin Concent 35.4, Red Cell Distribution Width 11.0L, Platelet Count 125L , Mean Platelet Volume 5.7L, Neutrophils (%) (Auto) 73.6, Lymphocytes (%) (Auto ) 15.8L, Monocytes (%) (Auto) 9.1, Eosinophils (%) (Auto) 1.2, Basophils (%) ( Auto) 0.3, Sodium Level 138, Potassium Level 3.5, Chloride Level 101, Carbon Dioxide Level 28, Anion Gap 9, Blood Urea Nitrogen 12, Creatinine 0.7, Estimat Glomerular Filtration Rate > 60, Glucose Level 125H, Calcium Level 9.0, Magnesium Level 2.0 Height (Feet): 5 Height (Inches): 2.00 Weight (Pounds): 165 General Appearance: no apparent distress, alert Neck: normal alignment, supple Cardiovascular: normal rate, regular rhythm Respiratory/Chest: lungs clear, normal breath sounds, no respiratory distress Abdomen: non tender, soft, no organomegaly Damion Ardon MD Oct 13, 2018 12:29
--- NOTE | 2018-10-13 13:09 | Consultation ---
History of Present Illness General Chief Complaint: Behavioral Complaint Present Illness Allergies: Coded Allergies: No Known Allergies (Unverified , 10/11/18) Patient History Healthcare decision maker Resuscitation status Full Code Advanced Directive on File Physical Exam Last 24 Hour Vital Signs Date Time Temp Pulse Resp B/P (MAP) Pulse Ox O2 Delivery O2 Flow Rate FiO2 10/13/18 12:00 98.3 76 20 126/79 (95) 99 10/13/18 09:00 Room Air 10/13/18 08:00 98.1 79 20 150/79 (102) 98 10/13/18 08:00 82 10/13/18 04:00 98.0 70 20 160/86 (110) 95 10/13/18 04:00 68 10/13/18 00:00 98.8 20 145/95 (112) 97 10/12/18 21:00 Room Air 10/12/18 20:00 98.8 78 20 139/85 (103) 97 10/12/18 20:00 68 10/12/18 16:00 99.1 86 20 143/85 (104) 97 10/12/18 16:00 77 Intake and Output 10/12/18 10/13/18 18:59 06:59 Intake Total 720 ml Balance 720 ml Intake Oral 720 ml # Voids 3 2 # Bowel Movements 2 Laboratory Tests Test 10/13/18 05:22 White Blood Count 7.3 K/UL (4.8-10.8) Red Blood Count 4.91 M/UL (4.70-6.10) Hemoglobin 15.9 G/DL (14.2-18.0) Hematocrit 44.9 % (42.0-52.0) Mean Corpuscular Volume 91 FL (80-99) Mean Corpuscular Hemoglobin 32.4 PG (27.0-31.0) H Mean Corpuscular Hemoglobin Concent 35.4 G/DL (32.0-36.0) Red Cell Distribution Width 11.0 % (11.6-14.8) L Platelet Count 125 K/UL (150-450) L Mean Platelet Volume 5.7 FL (6.5-10.1) L Neutrophils (%) (Auto) 73.6 % (45.0-75.0) Lymphocytes (%) (Auto) 15.8 % (20.0-45.0) L Monocytes (%) (Auto) 9.1 % (1.0-10.0) Eosinophils (%) (Auto) 1.2 % (0.0-3.0) Basophils (%) (Auto) 0.3 % (0.0-2.0) Sodium Level 138 MMOL/L (136-145) Potassium Level 3.5 MMOL/L (3.5-5.1) Chloride Level 101 MMOL/L (98-107) Carbon Dioxide Level 28 MMOL/L (21-32) Anion Gap 9 mmol/L (5-15) Blood Urea Nitrogen 12 mg/dL (7-18) Creatinine 0.7 MG/DL (0.55-1.30) Estimat Glomerular Filtration Rate > 60 mL/min (>60) Glucose Level 125 MG/DL (74-106) H Calcium Level 9.0 MG/DL (8.5-10.1) Magnesium Level 2.0 MG/DL (1.8-2.4) Height (Feet): 5 Height (Inches): 2.00 Weight (Pounds): 165 Medications Current Medications Medications (Trade) Dose Ordered Sig/Jerome Route PRN Reason Start Time Stop Time Status Last Admin Dose Admin Acetaminophen (Tylenol) 650 mg Q4H PRN ORAL Mild Pain (Pain Scale 1-3) 10/11/18 18:00 11/10/18 17:59 Chlordiazepoxide (Librium) 25 mg EVERY 8 HOURS ORAL 10/13/18 06:00 10/20/18 05:59 10/13/18 06:06 Dextrose (Dextrose 50%) 25 ml Q30M PRN IV Hypoglycemia 10/11/18 18:00 11/10/18 17:59 Dextrose (Dextrose 50%) 50 ml Q30M PRN IV Hypoglycemia 10/11/18 18:00 11/10/18 17:59 Diphenhydramine HCl (Benadryl) 25 mg Q6H PRN ORAL Itching/Pruritis 10/11/18 18:00 11/10/18 17:59 Fluoxetine HCl (PROzac) 20 mg DAILY ORAL 10/13/18 09:00 11/12/18 08:59 10/13/18 08:14 Folic Acid (Folate) 1 mg DAILY ORAL 10/12/18 09:00 7/3/19 08:59 10/13/18 08:15 Heparin Sodium (Porcine) (Heparin 5000 units/ml) 5,000 units EVERY 12 HOURS SUBQ 10/11/18 21:00 11/10/18 20:59 10/13/18 08:17 Lorazepam (Ativan 2mg/ml 1ml) 1 mg Q4H PRN IV anxiety 10/11/18 18:00 10/18/18 17:59 Ondansetron HCl (Zofran) 4 mg Q6H PRN IVP Nausea & Vomiting 10/11/18 18:00 11/10/18 17:59 Pantoprazole (Protonix) 40 mg ACBREAKFAST ORAL 10/12/18 06:30 11/11/18 06:29 10/13/18 06:07 Thiamine HCl (Vitamin B1) 100 mg DAILY ORAL 10/12/18 09:00 11/11/18 08:59 10/13/18 08:15 Assessment/Plan Assessment/Plan: Hematology Consultation Date patient seen: Oct 15, 2018 Time patient seen: 07:15 Reason for Hospitalization: Behavioral Complaint RFC: Thrombocytopenia bradford LEGGETT MD: Damion Cruz HPI 53 year old man with alcoholism, depression (reported suicide attempt six months ago, attempted to jump off a building) who presented to the ED with tremulousness and weakness, nausea and vomiting along with depression and anxiety, Denies any active suicidal ideations. Last drink of alcohol was Friday. He was noted to have a persistent plt count depressed and heme was consulted as well as psych and neuro. SHx: Denies tobacco use FHx: No premature CAD Allergies: Coded Allergies: No Known Allergies (Unverified , 10/11/18) Patient History Healthcare decision maker Resuscitation status Full Code Advanced Directive on File ROS Constitutional: Denies: chills, fever Eye: Denies: eye pain ENT: Denies: ear pain Respiratory: Denies: cough Cardiovascular: Denies: chest pain Gastrointestinal: Reports: nausea, vomiting; denies: abdominal pain Genitourinary: Denies: dysuria Musculoskeletal: Denies: back pain Neurological: Denies: headache PE Last 24 Hour Vital Signs Date Time Temp Pulse Resp B/P (MAP) Pulse Ox O2 Delivery O2 Flow Rate FiO2 10/13/18 12:00 98.3 76 20 126/79 (95) 99 10/13/18 09:00 Room Air 10/13/18 08:00 98.1 79 20 150/79 (102) 98 10/13/18 08:00 82 10/13/18 04:00 98.0 70 20 160/86 (110) 95 10/13/18 04:00 68 10/13/18 00:00 98.8 20 145/95 (112) 97 10/12/18 21:00 Room Air 10/12/18 20:00 98.8 78 20 139/85 (103) 97 10/12/18 20:00 68 10/12/18 16:00 99.1 86 20 143/85 (104) 97 10/12/18 16:00 77 General Appearance: no apparent distress, alert HEENT: atraumatic, anicteric Neck: supple Respiratory/Chest: lungs clear, normal breath sounds, no resp distress Cardiovascular/Chest: normal rate, regular rhythm Abdomen: non tender, soft Extremities: non-tender, normal inspection 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 II-XII grossly normal, no motor/sensory deficits, alert, oriented x 3, other - mild resting tremor Intake and Output 10/11/18 10/12/18 18:59 06:59 Intake Total 1056 ml 150 ml Output Total 200 ml Balance 1056 ml -50 ml Intake Oral 150 ml IV Total 1056 ml Output Urine Total 200 ml # Voids 1 4 # Bowel Movements 1 Laboratory Tests Test 10/11/18 15:55 10/12/18 05:54 White Blood Count 8.8 K/UL (4.8-10.8) 5.6 K/UL (4.8-10.8) Red Blood Count 4.97 M/UL (4.70-6.10) 4.67 M/UL (4.70-6.10) L Hemoglobin 15.9 G/DL (14.2-18.0) 15.0 G/DL (14.2-18.0) Hematocrit 44.1 % (42.0-52.0) 42.6 % (42.0-52.0) Mean Corpuscular Volume 89 FL (80-99) 91 FL (80-99) Mean Corpuscular Hemoglobin 31.9 PG (27.0-31.0) H 32.2 PG (27.0-31.0) H Mean Corpuscular Hemoglobin Concent 36.0 G/DL (32.0-36.0) 35.4 G/DL (32.0-36.0) Red Cell Distribution Width 11.0 % (11.6-14.8) L 11.0 % (11.6-14.8) L Platelet Count 136 K/UL (150-450) L 117 K/UL (150-450) L Mean Platelet Volume 5.5 FL (6.5-10.1) L 5.1 FL (6.5-10.1) L Neutrophils (%) (Auto) % (45.0-75.0) 68.4 % (45.0-75.0) Lymphocytes (%) (Auto) % (20.0-45.0) 20.3 % (20.0-45.0) Monocytes (%) (Auto) % (1.0-10.0) 9.4 % (1.0-10.0) Eosinophils (%) (Auto) % (0.0-3.0) 1.0 % (0.0-3.0) Basophils (%) (Auto) % (0.0-2.0) 0.9 % (0.0-2.0) Differential Total Cells Counted 100 Neutrophils % (Manual) 85 % (45-75) H Lymphocytes % (Manual) 9 % (20-45) L Monocytes % (Manual) 5 % (1-10) Eosinophils % (Manual) 0 % (0-3) Basophils % (Manual) 1 % (0-2) Band Neutrophils 0 % (0-8) Platelet Estimate Decreased L Platelet Morphology Normal Red Blood Cell Morphology Normal Prothrombin Time 10.1 SEC (9.30-11.50) Prothromb Time International Ratio 1.0 (0.9-1.1) Activated Partial Thromboplast Time 27 SEC (23-33) Urine Color Yellow Urine Appearance Clear Urine pH 6 (4.5-8.0) Urine Specific [place] 1.020 (1.005-1.035) Urine Protein 2+ (NEGATIVE) H Urine Glucose (UA) Negative (NEGATIVE) Urine Ketones 4+ (NEGATIVE) H Urine Blood 3+ (NEGATIVE) H Urine Nitrite Negative (NEGATIVE) Urine Bilirubin Negative (NEGATIVE) Urine Urobilinogen 4 MG/DL (0.0-1.0) H Urine Leukocyte Esterase 1+ (NEGATIVE) H Urine RBC 5-10 /HPF (0 - 0) H Urine WBC 2-4 /HPF (0 - 0) Urine Squamous Epithelial Cells Few /LPF (NONE/OCC) Urine Bacteria Few /HPF (NONE) Sodium Level 140 MMOL/L (136-145) 137 MMOL/L (136-145) Potassium Level 3.3 MMOL/L (3.5-5.1) L 3.0 MMOL/L (3.5-5.1) L Chloride Level 99 MMOL/L (98-107) 99 MMOL/L (98-107) Carbon Dioxide Level 29 MMOL/L (21-32) 28 MMOL/L (21-32) Anion Gap 12 mmol/L (5-15) 10 mmol/L (5-15) Blood Urea Nitrogen 16 mg/dL (7-18) 10 mg/dL (7-18) Creatinine 0.8 MG/DL (0.55-1.30) 0.6 MG/DL (0.55-1.30) Estimat Glomerular Filtration Rate > 60 mL/min (>60) > 60 mL/min (>60) Glucose Level 155 MG/DL (74-106) H 101 MG/DL (74-106) Calcium Level 9.4 MG/DL (8.5-10.1) 8.6 MG/DL (8.5-10.1) Phosphorus Level 3.9 MG/DL (2.5-4.9) Magnesium Level 2.0 MG/DL (1.8-2.4) 2.2 MG/DL (1.8-2.4) Total Bilirubin 2.9 MG/DL (0.2-1.0) H 3.0 MG/DL (0.2-1.0) H Direct Bilirubin 0.6 MG/DL (0.0-0.3) H 0.4 MG/DL (0.0-0.3) H Aspartate Amino Transf (AST/SGOT) 89 U/L (15-37) H 58 U/L (15-37) H Alanine Aminotransferase (ALT/SGPT) 54 U/L (12-78) 44 U/L (12-78) Alkaline Phosphatase 112 U/L (46-116) 98 U/L (46-116) Total Creatine Kinase 1443 U/L (26-308) H 702 U/L (26-308) H Troponin I 0.000 ng/mL (0.000-0.056) Total Protein 8.3 G/DL (6.4-8.2) H 6.9 G/DL (6.4-8.2) Albumin 4.3 G/DL (3.4-5.0) 3.5 G/DL (3.4-5.0) Globulin 4.0 g/dL 3.4 g/dL Albumin/Globulin Ratio 1.1 (1.0-2.7) 1.0 (1.0-2.7) Lipase 119 U/L (73-393) Salicylates Level < 0.2 ug/mL (2.8-20) L Urine Opiates Screen Negative (NEGATIVE) Acetaminophen Level < 2 MCG/ML (10-30) L Urine Barbiturates Screen Negative (NEGATIVE) Phencyclidine (PCP) Screen Negative (NEGATIVE) Urine Amphetamines Screen Positive (NEGATIVE) H Urine Benzodiazepines Screen Negative (NEGATIVE) Urine Cocaine Screen Negative (NEGATIVE) Urine Marijuana (THC) Screen Negative (NEGATIVE) Serum Alcohol 14 mg/dL Height (Feet): 5 Height (Inches): 2.00 Weight (Pounds): 165 Medications Current Medications Medications (Trade) Dose Ordered Sig/Jerome Route PRN Reason Start Time Stop Time Status Last Admin Dose Admin Acetaminophen (Tylenol) 650 mg Q4H PRN ORAL Mild Pain (Pain Scale 1-3) 10/11/18 18:00 11/10/18 17:59 Dextrose (Dextrose 50%) 25 ml Q30M PRN IV Hypoglycemia 10/11/18 18:00 11/10/18 17:59 Dextrose (Dextrose 50%) 50 ml Q30M PRN IV Hypoglycemia 10/11/18 18:00 11/10/18 17:59 Diphenhydramine HCl (Benadryl) 25 mg Q6H PRN ORAL Itching/Pruritis 10/11/18 18:00 11/10/18 17:59 Folic Acid (Folate) 1 mg DAILY ORAL 10/12/18 09:00 11/11/18 08:59 10/12/18 09:34 Heparin Sodium (Porcine) (Heparin 5000 units/ml) 5,000 units EVERY 12 HOURS SUBQ 10/11/18 21:00 11/10/18 20:59 10/11/18 20:53 Lorazepam (Ativan 2mg/ml 1ml) 1 mg Q4H PRN IV anxiety 10/11/18 18:00 10/18/18 17:59 Ondansetron HCl (Zofran) 4 mg Q6H PRN IVP Nausea & Vomiting 10/11/18 18:00 11/10/18 17:59 Pantoprazole (Protonix) 40 mg ACBREAKFAST ORAL 10/12/18 06:30 11/11/18 06:29 10/12/18 05:48 Potassium Chloride (K-Dur) 40 meq ONCE ORAL 10/12/18 10:15 10/12/18 11:15 10/12/18 10:40 Thiamine HCl (Vitamin B1) 100 mg DAILY ORAL 10/12/18 09:00 11/11/18 08:59 10/12/18 09:33 Assessment/Recs: # Thrombocytopenia - potential causes multifactorial, evaluate liver and viral etiologies to begin, is likely due to cirrhosis with a history of halfway alcohol abuse, continue trend plt as needed --> Hep panel and HIV ordered --> US abd to evaluate for cirrhosis and hsm ordered --> Peripheral smear ordered to evaluate for blasts /schistocytes --> abx and other meds have been reviewed --> ok for ppx if plt >50k w/ either heparin or lovenox --> plt 136-->117-->125k # Hyperproteinemia (elev >9) and low alb level --> consider a spep/upep if remains elevated --> if downtrends then likely due to inflammatory liver disease # Alcoholism --> Alcohol withdrawal # Urine tox positive for methamphetamine # Major depression # Anxiety # Hypokalemia --> replete with K as needed --> ativan and hydration as per pcp The timing of this note does not necessarily reflect the time of the patient was seen. GREATLY APPRECIATE CONSULTATION. Wilfrid Villegas MD Oct 13, 2018 13:09
[2018-10-13 16:00] VITALS: BP 130/83
--- NOTE | 2018-10-13 18:45 | Progress Note ---
DATE: 10/13/2018 SUBJECTIVE: The patient is calm. The patient's symptoms are improving, less anxious and agitated. MENTAL STATUS EXAMINATION: Alert and oriented x3. Mood is neutral. Affect is flat. Thought process, there is a paucity of thought content. Thought content, no suicidal or homicidal ideation. ASSESSMENT: Alcohol dependence, stable. PLAN: We will continue current medications. Provide the patient with reality orientation and supportive therapy. Mary Molina M.D. DR: ABDOUL JOB#: [id number] CC:
--- NOTE | 2018-10-13 19:05 | NUR ---
NURSE NOTES: Received patient from [facility], patient in bed, awake and oriented x3, eating dinner, no signs of aspiration. Calm and cooperative, PIV patent, no signs of infection or infiltration. Bed in low position, locked, call light within reach.
--- NOTE | 2018-10-13 19:05 | NUR ---
HAND-OFF: Report given to RORY Phillips.
[2018-10-13 20:00] VITALS: BP 135/81
--- NOTE | 2018-10-13 23:11 | Neurology Progress Note ---
Interim History Interim History ROS Limited/Unobtainable: No Complaints: AMS Events: Ambulatory and for D/C soon Interim History October 13, [address] Luis Alberto Carmona. Review of Systems All Systems: reviewed and negative except above Objective Physical Exam Last Vital Signs Date Time Temp Pulse Resp B/P (MAP) Pulse Ox O2 Delivery O2 Flow Rate FiO2 10/13/18 16:00 98.9 70 20 130/83 (99) 99 10/13/18 09:00 Room Air Laboratory Tests Test 10/13/18 05:22 White Blood Count 7.3 K/UL (4.8-10.8) Red Blood Count 4.91 M/UL (4.70-6.10) Hemoglobin 15.9 G/DL (14.2-18.0) Hematocrit 44.9 % (42.0-52.0) Mean Corpuscular Volume 91 FL (80-99) Mean Corpuscular Hemoglobin 32.4 PG (27.0-31.0) H Mean Corpuscular Hemoglobin Concent 35.4 G/DL (32.0-36.0) Red Cell Distribution Width 11.0 % (11.6-14.8) L Platelet Count 125 K/UL (150-450) L Mean Platelet Volume 5.7 FL (6.5-10.1) L Neutrophils (%) (Auto) 73.6 % (45.0-75.0) Lymphocytes (%) (Auto) 15.8 % (20.0-45.0) L Monocytes (%) (Auto) 9.1 % (1.0-10.0) Eosinophils (%) (Auto) 1.2 % (0.0-3.0) Basophils (%) (Auto) 0.3 % (0.0-2.0) Sodium Level 138 MMOL/L (136-145) Potassium Level 3.5 MMOL/L (3.5-5.1) Chloride Level 101 MMOL/L (98-107) Carbon Dioxide Level 28 MMOL/L (21-32) Anion Gap 9 mmol/L (5-15) Blood Urea Nitrogen 12 mg/dL (7-18) Creatinine 0.7 MG/DL (0.55-1.30) Estimat Glomerular Filtration Rate > 60 mL/min (>60) Glucose Level 125 MG/DL (74-106) H Calcium Level 9.0 MG/DL (8.5-10.1) Magnesium Level 2.0 MG/DL (1.8-2.4) Ferritin 703 NG/ML (8-388) H Hepatitis A IgM Antibody Pending Hepatitis B Surface Antigen Pending Hepatitis B Core IgM Antibody Pending Hepatitis C Antibody Pending HIV (1&2) Antibody Rapid Negative (NEGATIVE) General: well developed Head: normocophalic Neck: no rigidity EENT: benign Neurologic Exam Mental Status: awake, alert, oriented x4, normal cognition, good mathematical skills, normal recent memory, normal remote memory, preserved visuospatial function Speech: normal speech, no dysarthia Language: normal language, no aphasia Cranial Nerve II: fundus normal, visual lopez, no papilledema Cranial Nerves III, IV, : PERRLA, EOMI, pupils Cranial Nerve V: normal facial sensations, temporales function normal, masseters function normal, pterygoids function normal Cranial Nerve VII: no facial asymmetry, normal facial expressions Cranial Nerve VIII: normal hearing, no nystagmus Cranial Nerve IX: normal palate elevation, gag response Cranial Nerve X: no voice hoarseness Cranial Nerve XI: SCM symmetric, trapezii function normal Cranial Nerve XII: tongue midline, no tongue atrophy/fasciculations Motor System: normal muscle tone, strength 5/5, no involuntary movement, no muscle wasting Sensory: normal pinprick, normal light touch, normal position sense, normal graphesthesia Coordination: normal finger to nose bilaterally, normal heel to resendez bilaterally, negative Romberg test Deep Tendon Reflexes: 2+ bicep (L), 2+ bicep (R), 2+ tricep (L), 2+ tricep (R) , 2+ brachioradialis (L), 2+ brachioradialis (R), 2+ knee (L), 2+ knee (R), 2+ ankle (L), 2+ ankle (R) Stance: normal Gait: stable, normal regular, heel + toe gait Impression/Recommendations Status: stable, progressing, tolerating diet, ambulating well Recommendations COntinue neuro obs q 4 hrs Pain management as per ID Surgical plan as per ortho Maintain normothermia Maintain normoglycemia with ISS Improve overall nutrition Replace/ Replete Lytes PT eval Case Management for D/C planning Stable for discharge from neurological perspective Yaneth Bolton N.P. Oct 13, 2018 23:11
[2018-10-14] VITALS: BP 143/97
[2018-10-14 04:00] VITALS: BP 133/73
[2018-10-14] MEDS: chlordiazePOXIDE 25mg Cap ORAL SCH ×2 (06:07→15:31)
--- NOTE | 2018-10-14 07:23 | Hematology/Onc Progress Note ---
Assessment/Plan Assessment/Plan Assessment/Recs: # Thrombocytopenia - potential causes multifactorial, evaluate liver and viral etiologies to begin, is likely due to cirrhosis with a history of jail alcohol abuse, continue trend plt as needed --> Hep panel and HIV are both negative --> US abd to evaluate for cirrhosis and hsm ordered - results pending --> Peripheral smear ordered to evaluate for blasts /schistocytes --> abx and other meds have been reviewed --> ok for ppx if plt >50k w/ either heparin or lovenox --> plt 136-->117-->125k # Hyperproteinemia (elev >9) and low alb level --> consider a spep/upep if remains elevated --> if downtrends then likely due to inflammatory liver disease # Alcoholism --> Alcohol withdrawal --> On thiamine # Urine tox positive for methamphetamine # Major depression # Anxiety # Hypokalemia --> replete with K as needed --> ativan and hydration as per pcp The timing of this note does not necessarily reflect the time of the patient was seen. GREATLY APPRECIATE CONSULTATION. Subjective Allergies: Coded Allergies: No Known Allergies (Unverified , 10/11/18) Subjective 10/14: Pt resting in bed. VS stable. US abd results pending. Objective Objective Current Medications Medications (Trade) Dose Ordered Sig/Jerome Route PRN Reason Start Time Stop Time Status Last Admin Dose Admin Acetaminophen (Tylenol) 650 mg Q4H PRN ORAL Mild Pain (Pain Scale 1-3) 10/11/18 18:00 11/10/18 17:59 Chlordiazepoxide (Librium) 25 mg EVERY 8 HOURS ORAL 10/13/18 06:00 10/20/18 05:59 10/14/18 06:07 Dextrose (Dextrose 50%) 25 ml Q30M PRN IV Hypoglycemia 10/11/18 18:00 11/10/18 17:59 Dextrose (Dextrose 50%) 50 ml Q30M PRN IV Hypoglycemia 10/11/18 18:00 11/10/18 17:59 Diphenhydramine HCl (Benadryl) 25 mg Q6H PRN ORAL Itching/Pruritis 10/11/18 18:00 11/10/18 17:59 Fluoxetine HCl (PROzac) 20 mg DAILY ORAL 10/13/18 09:00 11/12/18 08:59 10/13/18 08:14 Folic Acid (Folate) 1 mg DAILY ORAL 10/12/18 09:00 11/11/18 08:59 10/13/18 08:15 Heparin Sodium (Porcine) (Heparin 5000 units/ml) 5,000 units EVERY 12 HOURS SUBQ 10/11/18 21:00 11/10/18 20:59 10/13/18 21:55 Lorazepam (Ativan 2mg/ml 1ml) 1 mg Q4H PRN IV anxiety 10/11/18 18:00 10/18/18 17:59 Ondansetron HCl (Zofran) 4 mg Q6H PRN IVP Nausea & Vomiting 10/11/18 18:00 11/10/18 17:59 Pantoprazole (Protonix) 40 mg ACBREAKFAST ORAL 10/12/18 06:30 11/11/18 06:29 10/14/18 06:07 Thiamine HCl (Vitamin B1) 100 mg DAILY ORAL 10/12/18 09:00 11/11/18 08:59 10/13/18 08:15 Last 24 Hour Vital Signs Date Time Temp Pulse Resp B/P (MAP) Pulse Ox O2 Delivery O2 Flow Rate FiO2 10/14/18 04:00 98.0 10/14/18 04:00 72 20 133/73 (93) 95 10/14/18 03:51 82 10/14/18 00:00 98.5 20 143/97 (112) 96 10/14/18 00:00 86 10/13/18 23:42 76 10/13/18 21:00 Room Air 10/13/18 20:00 99.9 20 135/81 (99) 97 10/13/18 19:23 78 10/13/18 16:00 98.9 70 20 130/83 (99) 99 10/13/18 16:00 71 10/13/18 12:00 80 10/13/18 12:00 98.3 76 20 126/79 (95) 99 10/13/18 09:00 Room Air 10/13/18 08:00 98.1 79 20 150/79 (102) 98 10/13/18 08:00 82 10/13/18 04:00 98.0 70 20 160/86 (110) 95 10/13/18 04:00 68 10/13/18 00:00 98.8 20 145/95 (112) 97 10/12/18 21:00 Room Air 10/12/18 20:00 98.8 78 20 139/85 (103) 97 10/12/18 20:00 68 10/12/18 16:00 99.1 86 20 143/85 (104) 97 10/12/18 16:00 77 10/12/18 12:00 98.1 81 20 146/89 (108) 98 10/12/18 12:00 68 10/12/18 09:00 Room Air 10/12/18 08:00 81 10/12/18 08:00 97.8 81 20 137/82 (100) 99 Intake and Output 10/13/18 10/14/18 19:00 07:00 Intake Total 480 ml Balance 480 ml Intake Oral 480 ml # Voids 2 # Bowel Movements 1 Labs Test 10/11/18 15:55 10/12/18 05:54 10/13/18 05:22 White Blood Count 8.8 K/UL (4.8-10.8) 5.6 K/UL (4.8-10.8) 7.3 K/UL (4.8-10.8) Red Blood Count 4.97 M/UL (4.70-6.10) 4.67 M/UL (4.70-6.10) 4.91 M/UL (4.70-6.10) Hemoglobin 15.9 G/DL (14.2-18.0) 15.0 G/DL (14.2-18.0) 15.9 G/DL (14.2-18.0) Hematocrit 44.1 % (42.0-52.0) 42.6 % (42.0-52.0) 44.9 % (42.0-52.0) Mean Corpuscular Volume 89 FL (80-99) 91 FL (80-99) 91 FL (80-99) Mean Corpuscular Hemoglobin 31.9 PG (27.0-31.0) 32.2 PG (27.0-31.0) 32.4 PG (27.0-31.0) Mean Corpuscular Hemoglobin Concent 36.0 G/DL (32.0-36.0) 35.4 G/DL (32.0-36.0) 35.4 G/DL (32.0-36.0) Red Cell Distribution Width 11.0 % (11.6-14.8) 11.0 % (11.6-14.8) 11.0 % (11.6-14.8) Platelet Count 136 K/UL (150-450) 117 K/UL (150-450) 125 K/UL (150-450) Mean Platelet Volume 5.5 FL (6.5-10.1) 5.1 FL (6.5-10.1) 5.7 FL (6.5-10.1) Neutrophils (%) (Auto) % (45.0-75.0) 68.4 % (45.0-75.0) 73.6 % (45.0-75.0) Lymphocytes (%) (Auto) % (20.0-45.0) 20.3 % (20.0-45.0) 15.8 % (20.0-45.0) Monocytes (%) (Auto) % (1.0-10.0) 9.4 % (1.0-10.0) 9.1 % (1.0-10.0) Eosinophils (%) (Auto) % (0.0-3.0) 1.0 % (0.0-3.0) 1.2 % (0.0-3.0) Basophils (%) (Auto) % (0.0-2.0) 0.9 % (0.0-2.0) 0.3 % (0.0-2.0) Differential Total Cells Counted 100 Neutrophils % (Manual) 85 % (45-75) Lymphocytes % (Manual) 9 % (20-45) Monocytes % (Manual) 5 % (1-10) Eosinophils % (Manual) 0 % (0-3) Basophils % (Manual) 1 % (0-2) Band Neutrophils 0 % (0-8) Platelet Estimate Decreased Platelet Morphology Normal Red Blood Cell Morphology Normal Prothrombin Time 10.1 SEC (9.30-11.50) Prothromb Time International Ratio 1.0 (0.9-1.1) Activated Partial Thromboplast Time 27 SEC (23-33) Urine Color Yellow Urine Appearance Clear Urine pH 6 (4.5-8.0) Urine Specific [place] 1.020 (1.005-1.035) Urine Protein 2+ (NEGATIVE) Urine Glucose (UA) Negative (NEGATIVE) Urine Ketones 4+ (NEGATIVE) Urine Blood 3+ (NEGATIVE) Urine Nitrite Negative (NEGATIVE) Urine Bilirubin Negative (NEGATIVE) Urine Urobilinogen 4 MG/DL (0.0-1.0) Urine Leukocyte Esterase 1+ (NEGATIVE) Urine RBC 5-10 /HPF (0 - 0) Urine WBC 2-4 /HPF (0 - 0) Urine Squamous Epithelial Cells Few /LPF (NONE/OCC) Urine Bacteria Few /HPF (NONE) Sodium Level 140 MMOL/L (136-145) 137 MMOL/L (136-145) 138 MMOL/L (136-145) Potassium Level 3.3 MMOL/L (3.5-5.1) 3.0 MMOL/L (3.5-5.1) 3.5 MMOL/L (3.5-5.1) Chloride Level 99 MMOL/L (98-107) 99 MMOL/L (98-107) 101 MMOL/L (98-107) Carbon Dioxide Level 29 MMOL/L (21-32) 28 MMOL/L (21-32) 28 MMOL/L (21-32) Anion Gap 12 mmol/L (5-15) 10 mmol/L (5-15) 9 mmol/L (5-15) Blood Urea Nitrogen 16 mg/dL (7-18) 10 mg/dL (7-18) 12 mg/dL (7-18) Creatinine 0.8 MG/DL (0.55-1.30) 0.6 MG/DL (0.55-1.30) 0.7 MG/DL (0.55-1.30) Estimat Glomerular Filtration Rate > 60 mL/min (>60) > 60 mL/min (>60) > 60 mL/min (>60) Glucose Level 155 MG/DL (74-106) 101 MG/DL (74-106) 125 MG/DL (74-106) Calcium Level 9.4 MG/DL (8.5-10.1) 8.6 MG/DL (8.5-10.1) 9.0 MG/DL (8.5-10.1) Phosphorus Level 3.9 MG/DL (2.5-4.9) Magnesium Level 2.0 MG/DL (1.8-2.4) 2.2 MG/DL (1.8-2.4) 2.0 MG/DL (1.8-2.4) Total Bilirubin 2.9 MG/DL (0.2-1.0) 3.0 MG/DL (0.2-1.0) Direct Bilirubin 0.6 MG/DL (0.0-0.3) 0.4 MG/DL (0.0-0.3) Aspartate Amino Transf (AST/SGOT) 89 U/L (15-37) 58 U/L (15-37) Alanine Aminotransferase (ALT/SGPT) 54 U/L (12-78) 44 U/L (12-78) Alkaline Phosphatase 112 U/L (46-116) 98 U/L (46-116) Total Creatine Kinase 1443 U/L (26-308) 702 U/L (26-308) Troponin I 0.000 ng/mL (0.000-0.056) Total Protein 8.3 G/DL (6.4-8.2) 6.9 G/DL (6.4-8.2) Albumin 4.3 G/DL (3.4-5.0) 3.5 G/DL (3.4-5.0) Globulin 4.0 g/dL 3.4 g/dL Albumin/Globulin Ratio 1.1 (1.0-2.7) 1.0 (1.0-2.7) Lipase 119 U/L (73-393) Salicylates Level < 0.2 ug/mL (2.8-20) Urine Opiates Screen Negative (NEGATIVE) Acetaminophen Level < 2 MCG/ML (10-30) Urine Barbiturates Screen Negative (NEGATIVE) Phencyclidine (PCP) Screen Negative (NEGATIVE) Urine Amphetamines Screen Positive (NEGATIVE) Urine Benzodiazepines Screen Negative (NEGATIVE) Urine Cocaine Screen Negative (NEGATIVE) Urine Marijuana (THC) Screen Negative (NEGATIVE) Serum Alcohol 14 mg/dL Ferritin 703 NG/ML (8-388) Hepatitis A IgM Antibody Negative (Negative) Hepatitis B Surface Antigen Negative (Negative) Hepatitis B Core IgM Antibody Negative (Negative) Hepatitis C Antibody <0.1 s/co ratio HIV (1&2) Antibody Rapid Negative (NEGATIVE) Height (Feet): 5 Height (Inches): 2.00 Weight (Pounds): 146 Objective PHYSICAL EXAM General Appearance: no apparent distress, alert HEENT: atraumatic, anicteric Neck: supple Respiratory/Chest: lungs clear, normal breath sounds, no resp distress Cardiovascular/Chest: normal rate, regular rhythm Abdomen: non tender, soft Extremities: non-tender, normal inspection 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
--- NOTE | 2018-10-14 07:29 | NUR ---
NURSE NOTES: Report received from RORY Phillips. Patient sleeping comfortably. Denies any pain or SOB. AOx4. IV intact, SL. Bed on lowest position, side rails upx2, brakes engaged. Call light within easy reach.
--- NOTE | 2018-10-14 07:29 | NUR ---
6HAND-OFF: Report given to Clyde VALADEZ. Patient in bed, in stable condition. Plan of care endorsed.
[2018-10-14 08:00] VITALS: BP 136/85
[2018-10-14] MEDS: Thiamine 100mg tab ORAL SCH (08:57)
[2018-10-14] MEDS: Heparin 5000 units/ml inj SUBQ SCH (09:00)
[2018-10-14] MEDS ORDERED: FLUOXETINE HCL20 MG ORAL (10:09)
--- NOTE | 2018-10-14 10:16 | Discharge Summary ---
Discharge Summary Hospital Course Date of Admission Oct 11, 2018 at 17:16 Date of Discharge 10/14/18 Admitting Diagnosis Impending DTs HPI Salvatore Guzman is a 53 year old male who was admitted on Oct 11, 2018 at 17:16 for Impending Delirum Tremens Consultations Neurology Psychiatry Hospital Course Patient admitted with alcohol withdrawal, rhabdo and depression, treated with IV fluids, benzos and nutritional supplementation. Withdrawal symptoms improved. Started on Prozac which he will continue as outpatient He was instructed to avoid further alcohol use and to seek AA program #Alcoholism #Alcohol withdrawal #Urine tox positive for methamphetamine #Major depression #Anxiety #Hypokalemia #Rhabdomyolysis -resolved, discharge home today -stop benzos -continue Prozac as outpatient -Psychiatry and Neurology evals appreciated -coordinator of rehabilitation services eval Discharge Medications New Medications: Fluoxetine Hcl* (Fluoxetine Hcl*) 20 Mg Capsule 20 MG ORAL DAILY for 30 Days, #30 CAP Discharge Condition Upon Discharge: stable Discharge Disposition Patient was discharged to Home Discharge Diagnoses: (1) Alcohol withdrawal (2) Rhabdomyolysis Damion Ardon MD Oct 14, 2018 10:16
--- NOTE | 2018-10-14 10:30 | NUR ---
NURSE NOTES: Encouraged Pt. to voice concerns, therapeutic communication done. Pt. denies suicidal ideations at this time.
--- NOTE | 2018-10-14 11:48 | Diagnostic Imaging Report ---
Indication: Abdominal pain Technique: Grayscale and duplex Doppler imaging of the abdomen performed. Comparison: None Findings: The liver is echogenic consistent with fatty infiltration. Doppler interrogation of the main portal vein shows patency with hepatopedal, monophasic flow. There is no biliary ductal dilitation identified. The CBD measures 2.2 mm. The gallbladder is unremarkable. There are no gallstones or wall thickening identified. Sonographic astorga's sign was negative per technologist. The demonstrated part of the pancreas, aorta and IVC show no abnormalities. Both kidneys appear unremarkable. There is no hydronephrosis. The spleen is normal in size, contour and echogenicity. There is no free fluid identified. IMPRESSION: Fatty liver
[2018-10-14 12:00] VITALS: BP 133/77
--- NOTE | 2018-10-14 16:25 | NUR ---
NURSE NOTES: Patient VS stable. Discharge teaching done. Family aware of discharge planning. Family at the bedside participated on discharge instructions. Patient very appreciative of hospital care. Verbalized understanding of alcohol effects, diet, support system and resources while leaving hospital. IV removed, intact, site cleaned and covered. ID band removed. solar sales ambassador removed, cleaned and stored. Patient left floor safely via wheelchair, accompanied by nurse and family member. Patient to pharmacy picking technician medication from preferred pharmacy. Contacted MD to facilitate transferring prescription order to pharmacy.
--- NOTE | 2018-10-15 01:00 | Progress Note ---
DATE: 10/14/2018 SUBJECTIVE: The patient is less anxious. He was able to be engaged during evaluation. No behavior issues noted. Compliant with medications. MENTAL STATUS EXAMINATION: Alert and oriented x3. Mood is anxious. Affect is constricted. Congruent mood. Thought process is linear. Thought content, no suicidal or homicidal ideations. ASSESSMENT: 1. Alcohol dependence. 2. Anxiety disorder. PLAN: We will continue current medication. Provide the patient with reality orientation and supportive therapy. Mary Molina M.D. DR: DIMITRY JOB#: [id number] CC:
== END 2018-10-14 16:44 | disposition home or self-care (01) | DRG 775 ==
LOC: EDBEDREQ 15:56 → EMR 16:12 → 2E 16:40 → EDBEDREQ 17:01 → OBSVTOIN 17:16 → EDBEDREQ 17:59
PROC: HZ2ZZZZ Detoxification Services for Substance Abuse Treatment (ICD-10-PCS; principal; 2018-10-11)
DX: F10.239 Alcohol dependence with withdrawal, unspecified (principal); M62.82 Rhabdomyolysis; D69.59 Other secondary thrombocytopenia; F15.980 Other stimulant use, unspecified with stimulant-induced anxiety disorder; E88.09 Other disorders of plasma-protein metabolism, not elsewhere classified; K70.30 Alcoholic cirrhosis of liver without ascites; Y90.0 Blood alcohol level of less than 20 mg/100 ml; E87.6 Hypokalemia; F32.9 Major depressive disorder, single episode, unspecified
CPT/HCPCS: 36415; 71045; 76700; 80048; 80053; 80307; 80329; 81003; 82248; 82550; 82728; 82962; 83690; 83735; 84100; 84484; 85007; 85025; 85610; 85730; 86703; 86705; 86709; 86803; 87340; 93005; 96365; 96375; 99285; J8499

== ENCOUNTER 2019-05-06 22:54 | Emergency (ER) | payer MEDICAID ==
[~2019-05-06] VITALS: Ht 172.7 cm; Wt 77.1 kg
[~2019-05-06 22:54] MED LIST: FLUOXETINE HCL20 MG ORAL
--- NOTE | 2019-05-06 23:03 | Emergency Room Report ---
History of Present Illness General Chief Complaint: Substance Abuse Source: Medical Record, EMS Present Illness HPI This is a 54-year-old male brought in by EMS for chief complaint of altered mental status. He was at a nearby bus stop and was passed out. He had a discharge note from [facility] couple weeks ago for alcohol intoxication. He has been here before for alcohol intoxication and withdrawal symptoms. Unable to get any history from this patient because of his mental status. There was no trauma. Allergies: Coded Allergies: No Known Allergies (Unverified , 10/11/18) Patient History Past Medical History: see triage record, old chart reviewed Past Surgical History: other Pertinent Family History: none Social History: Reports: alcohol use Immunizations: other Reviewed Nursing Documentation: PMH: Agreed; PSxH: Agreed Nursing Documentation-PMH Past Medical History: Deferred Hx Cardiac Problems: Yes Hx Cancer: No Hx Gastrointestinal Problems: No Hx Neurological Problems: No Review of Systems All Other Systems: limited - Secondary to intoxication Physical Exam Vital Signs Date Time Temp Pulse Resp B/P (MAP) Pulse Ox O2 Delivery O2 Flow Rate FiO2 05/06/19 22:51 98.8 70 18 135/60 (85) 95 Room Air Sp02 EP Interpretation: reviewed, normal General Appearance: well appearing, no apparent distress, other - Intoxicated Head: normocephalic, atraumatic Eyes: bilateral eye PERRL, bilateral eye EOMI ENT: normal pharynx Neck: full range of motion, supple, no meningismus Respiratory: chest non-tender, lungs clear, normal breath sounds Cardiovascular #1: regular rate, rhythm, no murmur Gastrointestinal: normal bowel sounds, non tender, no mass, no organomegaly, no bruit, non-distended Musculoskeletal: back normal, normal range of motion Neurologic: normal inspection Psychiatric: mood/affect normal Medical Decision Making Diagnostic Impression: Primary Impression: Alcohol intoxication Qualified Codes: F10.920 - Alcohol use, unspecified with intoxication, uncomplicated ER Course Patient with severe alcohol intoxication. He slowly regaining his consciousness. More awake now. Will reassess in the morning and if able to ambulate without problem, will discharge home. We will put him on Librium. Last Vital Signs Date Time Temp Pulse Resp B/P (MAP) Pulse Ox O2 Delivery O2 Flow Rate FiO2 05/06/19 22:51 98.8 70 18 135/60 (85) 95 Room Air Status: improved Disposition: HOME, SELF-CARE Condition: Stable Scripts Chlordiazepoxide (Chlordiazepoxide HCl) 25 Mg Capsule 25 MG ORAL THREE TIMES A DAY, #15 CAP 0 Refills Prov: Everett Rosado MD 05/07/19 Additional Instructions: Abstain from drinking alcohol. Follow-up with rehab within a week. Return if symptoms worsen. Everett Rosado MD May 06, 2019 23:03
[2019-05-06 23:04] VITALS: BP 103/68
[2019-05-07 00:57] VITALS: BP 111/75
[2019-05-07 03:18] VITALS: BP 105/69
[2019-05-07] MEDS ORDERED: LIBRIUM25 MG ORAL (03:37)
[2019-05-07 04:57] VITALS: BP 102/72
[2019-05-07 07:08] VITALS: BP 132/68
== END 2019-05-07 07:08 | disposition home or self-care (01) ==
LOC: EDBD 22:54 → EMR 23:05
DX: F10.920 Alcohol use, unspecified with intoxication, uncomplicated (principal)
CPT/HCPCS: 36415; G0480; Z7502; 99283